=== PATIENT | female | born 1970 | race Caucasian/White ===

== ENCOUNTER 2019-10-14 09:12 | Inpatient (IN) | payer MEDICAID ==
[~2019-10-14] VITALS: Ht 152.4 cm; Wt 68.5 kg
[~2019-10-14 09:12] MED LIST changes: -BALANCED SALT IRRIG SOLN 15ML ONE; -BALANCED SALT IRRIG SOLN COMB1 500ML OP SCH; -CIPROFLOXACIN 0.3% OPHTH SOLN 2.5ML ONE; -CYCLOPENTOLATE HCL 1% OPHTH DROPS 2ML RIGHTEYE ONE; -ESCI10TA54 PO; +ESCI10TA61 PO; -LIDOCAINE HCL/PF 2% 20 MG/ML 10ML VIAL ONE; -OR220 PO; -PHENYLEPHRINE HCL 10% OPHTH DROPS 5ML RIGHTEYE ONE; -PHENYLEPHRINE HCL 2.5% OPHTH DROPS 2ML ONE; -PREDNISOLONE ACETATE 1% OPHTH DROPS 5ML ONE; -SODIUM CHLORIDE 0.9% 500 ML IV ONE; -TETRACAINE 0.5% OPHTH DROPS 4ML ONE; -TRAZ-251 MT; -TROPICAMIDE 1% OPHTH DROPS 15ML RIGHTEYE ONE; +ZINC1CAP2 PO
[2019-10-14 10:25] LABS: BASOPHILS % 0.9 % (0.0-2.0); EOSINOPHILS % 4.6 % (0.0-5.0); HEMATOCRIT. 32.6 % (36.0-48.0); HEMOGLOBIN. 10.9 g/dL (12.0-16.0); LYMPHOCYTES % 28.7 % (20.0-50.0); MEAN CORPUSCULAR HEMOGLOBIN 34.5 pg (28.0-32.0); MEAN PLATELET VOLUME 9.5 fl (7.4-10.4); MONOCYTES % 13.6 % (2.0-8.0); NEUTROPHILS % 52.2 % (40.0-76.0); PLATELET 255 x1000/uL (130-400); RED BLOOD CELL COUNT 3.17 mill/uL (4.2-5.4); RED CELL DISTRIBUTION WIDTH 17.5 % (11.6-14.6)
[2019-10-14 10:28] LABS: CHLORIDE 105 mEq/L (98-107)
[2019-10-14] MEDS ORDERED: DEXTROSE 50% WATER 50ML SYRINGE IV NR (10:45)
[2019-10-14] MEDS ORDERED: CALCIUM CHLORIDE 1GM/10ML SYR IV NR (11:00)
[2019-10-14] MEDS ORDERED: SODIUM BICARBONATE 8.4% 1 MEQ/ML 50ML SYR IV NR (11:00)
[2019-10-14] MEDS ORDERED: ALBUTEROL (0.083%) 2.5MG/3ML NEB HHN NR (11:00)
[2019-10-14] MEDS ORDERED: INSULIN REGULAR (HUMULIN R) 300UNITS/3ML IV NR (11:00)
[2019-10-14] MEDS ORDERED: ONDANSETRON HCL 4MG/2ML INJ IV PRN (12:30)
[2019-10-14] MEDS ORDERED: ACETAMINOPHEN 325MG TABLET PO PRN (12:30)
[2019-10-14] MEDS ORDERED: DEXTROSE 50% WATER 50ML SYRINGE IV ONE ×4 (12:48→13:30)
[2019-10-14] MEDS ORDERED: SODIUM POLYSTYRENE SULFONATE 15 G/60 ML BOT PO SCH (15:00)
[2019-10-14] MEDS ORDERED: CLONIDINE 0.1MG TABLET PO PRN (15:00)
[2019-10-14 16:00] VITALS: BP 115/50
[2019-10-14 16:23] VITALS: BP 143/84
[2019-10-14] MEDS ORDERED: TRAZ-251 MT (18:44)
[2019-10-14] MEDS ORDERED: INFLUENZA VIRUS VACCINE(AFLURIA) 0.5ML SYR IM ONE (19:30)
[2019-10-14 20:00] VITALS: BP 145/79
[2019-10-14] MEDS ORDERED: ZOLPIDEM TARTRATE 5MG TABLET PO PRN (23:00)
[2019-10-14] MEDS: TRAZODONE HCL 50MG TABLET PO SCH (23:42)
[2019-10-15] VITALS: BP 130/60
[2019-10-15 04:00] VITALS: BP 140/57
[2019-10-15] MEDS: OMEPRAZOLE 20MG CAPSULE EXTENDED RELEASE PO SCH (06:28)
[2019-10-15] MEDS: HYDRALAZINE HCL 50MG TABLET PO SCH ×3 (06:28→21:00)
[2019-10-15 07:22] LABS: HEMOGLOBIN. 10.3 g/dL (12.0-16.0); MEAN CORPUSCULAR HEMOGLOBIN 34.4 pg (28.0-32.0); MEAN CORPUSCULAR VOLUME 103.6 fL (81.0-99.0); MEAN PLATELET VOLUME 9.2 fl (7.4-10.4); PLATELET 242 x1000/uL (130-400); RED BLOOD CELL COUNT 2.99 mill/uL (4.2-5.4); RED CELL DISTRIBUTION WIDTH 17.8 % (11.6-14.6)
[2019-10-15 08:00] VITALS: BP 119/48
[2019-10-15] MEDS ORDERED: CALCIUM ACETATE 667MG CAPSULE PO ONE (09:00)
[2019-10-15] MEDS: SEVELAMER CARBONATE 800 MG TABLET PO SCH ×3 (09:02→18:24)
[2019-10-15] MEDS: AMLODIPINE 10MG TABLET PO SCH (09:02)
[2019-10-15] MEDS: CALCIUM ACETATE 667MG CAPSULE PO SCH ×3 (09:02→18:24)
[2019-10-15] MEDS: METOPROLOL TARTRATE 50MG TABLET PO SCH ×2 (09:02→21:00)
[2019-10-15] MEDS: LORATADINE 10MG TABLET PO SCH (09:02)
[2019-10-15 09:47] LABS: PLATELET ESTIMATE NORMAL
[2019-10-15] MEDS ORDERED: SODIUM POLYSTYRENE SULFONATE 15 G/60 ML BOT PO SCH (10:00)
[2019-10-15] MEDS ORDERED: SODIUM POLYSTYRENE SULFONATE 15 G/60 ML BOT PO NR ×2 (11:00→16:00)
[2019-10-15 12:30] VITALS: BP 146/74
[2019-10-15 16:29] VITALS: BP 137/69
[2019-10-15 20:00] VITALS: BP 115/67
[2019-10-15] MEDS: TRAZODONE HCL 50MG TABLET PO SCH (20:59)
[2019-10-15] MEDS ORDERED: TRAZODONE HCL 50MG TABLET PO SCH (21:00)
[2019-10-15] MEDS ORDERED: GABAPENTIN 300MG CAPSULE PO SCH (21:00)
[2019-10-15] MEDS ORDERED: ZOLPIDEM TARTRATE 5MG TABLET PO SCH (21:00)
[2019-10-16] VITALS: BP 114/50
[2019-10-16 04:00] VITALS: BP 121/52
[2019-10-16] MEDS ORDERED: MORPHINE SULFATE 2 MG/ML CPJ (NOT FOR IM USE) IV PRN (06:00)
[2019-10-16] MEDS: HYDRALAZINE HCL 50MG TABLET PO SCH (06:00)
[2019-10-16] MEDS: OMEPRAZOLE 20MG CAPSULE EXTENDED RELEASE PO SCH (06:21)
[2019-10-16] MEDS: CALCIUM ACETATE 667MG CAPSULE PO SCH ×2 (07:40→11:54)
[2019-10-16] MEDS: SEVELAMER CARBONATE 800 MG TABLET PO SCH ×2 (07:40→11:55)
[2019-10-16 08:00] VITALS: BP 126/64
[2019-10-16] MEDS: LORATADINE 10MG TABLET PO SCH (08:46)
[2019-10-16] MEDS: AMLODIPINE 10MG TABLET PO SCH (09:00)
[2019-10-16] MEDS: METOPROLOL TARTRATE 50MG TABLET PO SCH (09:00)
[2019-10-16 09:11] LABS: BASOPHILS % 1.1 % (0.0-2.0); EOSINOPHILS % 7.1 % (0.0-5.0); HEMATOCRIT. 33.5 % (36.0-48.0); HEMOGLOBIN. 11.5 g/dL (12.0-16.0); LYMPHOCYTES % 18.6 % (20.0-50.0); MEAN CORPUSCULAR HEMOGLOBIN 35.1 pg (28.0-32.0); MEAN CORPUSCULAR VOLUME 102.6 fL (81.0-99.0); MEAN PLATELET VOLUME 8.9 fl (7.4-10.4); MONOCYTES % 10.9 % (2.0-8.0); NEUTROPHILS % 62.3 % (40.0-76.0); PLATELET 244 x1000/uL (130-400); RED BLOOD CELL COUNT 3.27 mill/uL (4.2-5.4); RED CELL DISTRIBUTION WIDTH 17.4 % (11.6-14.6)
[2019-10-16 09:26] LABS: PHOSPHORUS 3.2 mg/dL (2.5-4.9)
[2019-10-16] MEDS ORDERED: BALANCED SALT IRRIG SOLN COMB1 500ML OP NR (11:00)
[2019-10-16 12:00] VITALS: BP 133/69
[2019-10-16] MEDS ORDERED: TETRACAINE 0.5% OPHTH DROPS 4ML ONE (12:00)
[2019-10-16] MEDS ORDERED: CYCLOPENTOLATE HCL 1% OPHTH DROPS 2ML ONE (12:00)
[2019-10-16] MEDS ORDERED: PHENYLEPHRINE HCL 10% OPHTH DROPS 5ML ONE (12:00)
[2019-10-16] MEDS ORDERED: PREDNISOLONE ACETATE 1% OPHTH DROPS 5ML ONE (12:00)
[2019-10-16] MEDS ORDERED: ACETYLCHOLINE CHLORIDE INTRAOCULAR SOLUTION 1:100 ELECTROLYTE DILUENT IO ONE (12:00)
[2019-10-16] MEDS ORDERED: CIPROFLOXACIN 0.3% OPHTH SOLN 2.5ML ONE (12:00)
[2019-10-16] MEDS ORDERED: TROPICAMIDE 1% OPHTH DROPS 15ML ONE (12:00)
[2019-10-16] MEDS ORDERED: BALANCED SALT IRRIG SOLN 15ML ONE (12:00)
[2019-10-16] MEDS ORDERED: TRYPAN BLUE 0.5 ML DISP.SYRIN IO ONE ×2 (12:00→13:14)
[2019-10-16] MEDS ORDERED: HYALURONATE SODIUM 14 MG/ML 0.85ML SYRINGE IO ONE (12:22)
[2019-10-16] MEDS ORDERED: NEOMY SULF/BACITRAC ZN/POLY/HC 1 APP TUBE ONE (12:23)
[2019-10-16] MEDS ORDERED: MIDAZOLAM HCL 2 MG/2 ML VIAL ONE (13:18)
[2019-10-16] MEDS ORDERED: DIPHENHYDRAMINE 50MG/ML VIAL ONE (13:18)
[2019-10-16] MEDS ORDERED: FENTANYL CITRATE/PF 50MCG/ML 2ML VIAL ONE (13:18)
[2019-10-16] MEDS ORDERED: HYDRALAZINE 20MG/ML VIAL ONE (14:15)
[2019-10-16 15:17] VITALS: BP 133/69
== END 2019-10-16 16:42 | disposition home or self-care (01) | DRG 952 ==
LOC: ER 09:12 → 8WST 12:12 → EDBEDREQTM 12:16 → EDBEDREQ 12:16 → ENRESERV 14:47
PROVIDERS: ADMIT Internal Medicine; ATTEND Internal Medicine
PROC: 5A1D70Z Performance of Urinary Filtration, Intermittent, Less than 6 Hours Per Day (ICD-10-PCS; principal; 2019-10-14)
PROC: 5A1D70Z Performance of Urinary Filtration, Intermittent, Less than 6 Hours Per Day (ICD-10-PCS; 2019-10-15)
PROC: 08RJ3JZ Replacement of Right Lens with Synthetic Substitute, Percutaneous Approach (ICD-10-PCS; 2019-10-15)
PROC: 08B43ZZ Excision of Right Vitreous, Percutaneous Approach (ICD-10-PCS; 2019-10-15)
DX: E87.5 Hyperkalemia (principal); I12.0 Hypertensive chronic kidney disease with stage 5 chronic kidney disease or end stage renal disease; E44.0 Moderate protein-calorie malnutrition; N25.81 Secondary hyperparathyroidism of renal origin; H25.21 Age-related cataract, morgagnian type, right eye; N18.6 End stage renal disease; D63.8 Anemia in other chronic diseases classified elsewhere; R74.0 Nonspecific elevation of levels of transaminase and lactic acid dehydrogenase [LDH]; Z82.49 Family history of ischemic heart disease and other diseases of the circulatory system; Z99.2 Dependence on renal dialysis; Z88.0 Allergy status to penicillin; Z79.899 Other long term (current) drug therapy; Z68.29 Body mass index [BMI] 29.0-29.9, adult
CPT/HCPCS: 36415; 80048; 80053; 82962; 83735; 84100; 84132; 85025; 93005; 93970; 96374; 96375; 99285; J0360; J1200; J1815; J2250; J2270; J3010; J3490; Q9957; V2632

== ENCOUNTER → 2019-10-14 | Day surgery (SDC) | payer MEDICAID ==
[~2019-10-14] VITALS: Ht 142.2 cm; Wt 56.0 kg
[~2019-10-14] MED LIST: AMLO10TA80 PO; BALANCED SALT IRRIG SOLN 15ML ONE; BALANCED SALT IRRIG SOLN COMB1 500ML OP SCH; CALC667T6 PO; CIPROFLOXACIN 0.3% OPHTH SOLN 2.5ML ONE; CROM10DR7 OP; CYCL5TAB PO; CYCLOPENTOLATE HCL 1% OPHTH DROPS 2ML RIGHTEYE ONE; ESCI10TA54 PO; FLUT15.813 NS; FOLI1TAB63 PO; GABA-531 PO; HYDR100T26 PO; IBUP-2030 PO; LIDO35.44 TP; LIDOCAINE HCL/PF 2% 20 MG/ML 10ML VIAL ONE; LORA10TA7 PO; MEGE40TA27 PO; METO-539 PO; OMEP20TA2 PO; OR220 PO; P20 PO; PHENYLEPHRINE HCL 10% OPHTH DROPS 5ML RIGHTEYE ONE; PHENYLEPHRINE HCL 2.5% OPHTH DROPS 2ML ONE; PREDNISOLONE ACETATE 1% OPHTH DROPS 5ML ONE; SEVE800T8 PO; SODI650T PO; SODIUM CHLORIDE 0.9% 500 ML IV ONE; TETRACAINE 0.5% OPHTH DROPS 4ML ONE; TRAZ-251 MT; TRAZADONE PO; TROPICAMIDE 1% OPHTH DROPS 15ML RIGHTEYE ONE; ZOLP10TA6 PO
[2019-10-14 07:47] LABS: HEMATOCRIT. 33.3 % (36.0-48.0); HEMOGLOBIN. 10.9 g/dL (12.0-16.0); MEAN CORPUSCULAR VOLUME 103.6 fL (81.0-99.0); MEAN PLATELET VOLUME 8.9 fl (7.4-10.4); PLATELET 250 x1000/uL (130-400); RED BLOOD CELL COUNT 3.21 mill/uL (4.2-5.4); RED CELL DISTRIBUTION WIDTH 17.6 % (11.6-14.6)
[2019-10-14 09:09] LABS: PLATELET ESTIMATE NORMAL
== END | disposition home or self-care (01) ==
LOC: OR 06:35
PROVIDERS: ATTEND Ophthalmology
DX: H25.21 Age-related cataract, morgagnian type, right eye (principal); Z53.8 Procedure and treatment not carried out for other reasons; Z79.899 Other long term (current) drug therapy; Z88.0 Allergy status to penicillin; Z88.8 Allergy status to other drugs, medicaments and biological substances
CPT/HCPCS: 36415; 80048; 84132; 85025; 93005; J3490; J7040

== ENCOUNTER → 2021-10-13 | Emergency (ER) | payer MEDICAID ==
[~2021-10-13] VITALS: Ht 152.4 cm; Wt 80.0 kg
[~2021-10-13] MED LIST changes: +ADENOSINE 3 MG/ML 2ML VIAL IV ONE; +CALCIUM CHLORIDE 1GM/10ML SYR IV ONE; -CYCL5TAB PO; +DEXTROSE 50% WATER 50ML SYRINGE IV ONE; +EPINEPHRINE 0.1MG/ML (1:10,000) 10ML SYR ONE; +ESCI-7 PO; -ESCI10TA61 PO; -GABA-531 PO; +GABA-532 PO; -MEGE40TA27 PO; +MEGE40TA7 PO; -P20 PO; +SODIUM BICARBONATE 8.4% 1 MEQ/ML 50ML SYR IV ONE; +TRAZ-251 MT; -TRAZADONE PO
[2021-10-13 07:46] VITALS: BP 75/40
== END ==
LOC: ER 07:43
DX: I46.9 Cardiac arrest, cause unspecified (principal); I12.0 Hypertensive chronic kidney disease with stage 5 chronic kidney disease or end stage renal disease; N18.6 End stage renal disease; Z88.0 Allergy status to penicillin; Z99.2 Dependence on renal dialysis; Z86.19 Personal history of other infectious and parasitic diseases
CPT/HCPCS: 31500; 82962; 99285; J0153; J3490